=== PATIENT | female | born 1995 | race African-American/Black ===

== ENCOUNTER 2022-04-13 13:42 | Emergency (ER) | payer MEDICAID ==
[~2022-04-13] VITALS: Ht 177.8 cm; Wt 82.0 kg
[2022-04-13 13:54] VITALS: BP 111/69
== END 2022-04-13 18:41 | disposition left against medical advice (07) ==
LOC: ER 13:42
DX: Z53.21 Procedure and treatment not carried out due to patient leaving prior to being seen by health care provider (principal)
CPT/HCPCS: 81025

== ENCOUNTER 2025-05-15 11:17 | Emergency (ER) | payer MEDICAID ==
[~2025-05-15] VITALS: Ht 182.9 cm; Wt 95.0 kg
[2025-05-15 11:20] VITALS: O2SAT 99
[2025-05-15] MEDS ORDERED: LIDOCAINE 5% PATCH TOP SCH (13:15)
[2025-05-15] MEDS: ACETAMINOPHEN 500MG TABLET PO ONE (13:22)
[2025-05-15] MEDS: LIDOCAINE 5% PATCH TOP SCH (13:23)
[2025-05-15] MEDS ORDERED: LIDO700A30 TP (14:59)
[2025-05-15] MEDS ORDERED: ACET-2708 MT (14:59)
[2025-05-15 15:14] VITALS: BP 129/75; PULSE 88; RESP 15; TEMP 36.8; O2SAT 99
== END 2025-05-15 15:15 | disposition home or self-care (01) ==
LOC: ER 11:17
DX: S39.012A Strain of muscle, fascia and tendon of lower back, initial encounter (principal); R20.0 Anesthesia of skin; Z98.890 Other specified postprocedural states; Z88.0 Allergy status to penicillin; X58.XXXA Exposure to other specified factors, initial encounter; Y93.89 Activity, other specified; Y92.89 Other specified places as the place of occurrence of the external cause; Y99.8 Other external cause status
CPT/HCPCS: 72131; 81025; 99284